=== PATIENT | female | born 1980 | race African-American/Black ===

== ENCOUNTER 2019-05-07 09:09 | Inpatient (IN) | payer MEDICAID ==
[~2019-05-07] VITALS: Ht 165.1 cm; Wt 42.4 kg
[2019-05-07] VITALS (43 sets, daily range): BP systolic 94–171; BP diastolic 47–115
[2019-05-07 09:46] LABS: BASOPHILS % 0.5 % (0.0-2.0); EOSINOPHILS % 0.1 % (0.0-5.0); HEMATOCRIT. 45.8 % (36.0-48.0); HEMOGLOBIN. 13.4 g/dL (12.0-16.0); LYMPHOCYTES % 10.6 % (20.0-50.0); MEAN CORPUSCULAR HEMOGLOBIN 26.3 pg (28.0-32.0); MEAN CORPUSCULAR VOLUME 90.2 fL (81.0-99.0); MEAN PLATELET VOLUME 7.6 fl (7.4-10.4); MONOCYTES % 4.9 % (2.0-8.0); NEUTROPHILS % 83.9 % (40.0-76.0); PLATELET 505 x1000/uL (130-400); RED BLOOD CELL COUNT 5.08 mill/uL (4.2-5.4); RED CELL DISTRIBUTION WIDTH 20.4 % (11.6-14.6)
[2019-05-07 09:50] LABS: CHLORIDE 81 mEq/L (98-107)
[2019-05-07 09:54] LABS: ETHANOL BLOOD < 10 mg/dL
[2019-05-07] MEDS ORDERED: SODIUM CHLORIDE 0.9% 1,000 ML IV ONE (10:03)
[2019-05-07] MEDS ORDERED: INSULIN REGULAR (DRIP) 100 UNITS in SODIUM CHLORIDE 0.9% 99 ML IV SCH (10:15)
[2019-05-07 10:18] LABS: CLARITY URINE CLOUDY (CLEAR); COLOR URINE YELLOW (YELLOW); KETONES URINE 3+ (NEGATIVE); LEUKOCYTE ESTERASE URINE 1+ (NEGATIVE); NITRITE URINE NEGATIVE (NEGATIVE); OCCULT BLOOD URINE 2+ (NEGATIVE); PROTEIN URINE 1+ (NEGATIVE); SPECIFIC GRAVITY URINE 1.022 (1.005-1.030); UROBILINOGEN URINE 0.2 E.U./dL (0.2-1.0)
[2019-05-07 10:22] LABS: BG CARBOXYHEMOGLOBIN 0.9 % (0.5-1.5); BG DEOXYHEMOGLOBIN 1.3 % (0.0-5.0); BG FRACTION INSPIRED OXYGEN 21; BG METHEMOGLOBIN 0.1 % (0.0-1.5); BG OXYGEN SATURATION 98.7 % (92.0-98.5); BG OXYHEMOGLOBIN 97.7 % (94.0-97.0); BG PCO2 < 8.9 mmHg (35.0-45.0); BG PH 6.917 (7.350-7.450); BG PO2 189.2 mmHg (75.0-100.0); BG SAMPLE SITE RIGHT BRACHIAL; BG TOTAL HEMOGLOBIN 13.1 g/dL (12.0-18.0); BG VENT MODE ROOM AIR
[2019-05-07] MEDS ORDERED: SODIUM BICARBONATE 8.4% 1 MEQ/ML 50ML SYR IV ONE (10:30)
[2019-05-07] MEDS: SODIUM CHLORIDE 0.9% 1,000 ML IV SCH ×2 (10:43→18:27)
[2019-05-07] MEDS ORDERED: INSULIN REGULAR (DRIP) 100 UNITS in SODIUM CHLORIDE 0.9% 100 ML IV SCH (10:43)
[2019-05-07 10:44] LABS: BETA HYDROXYBUTYRATE 19.6 mMol/L (0.0-0.3)
[2019-05-07] MEDS ORDERED: ENOXAPARIN 40MG/0.4ML SYR SUBCUT SCH ×2 (10:45→14:00)
[2019-05-07] MEDS ORDERED: ACETAMINOPHEN 325MG TABLET PO PRN (10:45)
[2019-05-07] MEDS ORDERED: CLONIDINE 0.1MG TABLET PO PRN (10:45)
[2019-05-07] MEDS ORDERED: DEXTROSE 50% WATER 50ML SYRINGE IV PRN (10:45)
[2019-05-07] MEDS ORDERED: SUCCINYLCHOLINE CHLORIDE 200MG/10ML IV ONE ×2 (10:45→11:00)
[2019-05-07] MEDS ORDERED: DOCUSATE SODIUM 100MG CAPSULE PO PRN (10:45)
[2019-05-07] MEDS ORDERED: MAGNESIUM/ALUMINUM HYDROXIDE/SIMETHICONE 30ML UDC PO PRN (10:45)
[2019-05-07] MEDS ORDERED: ONDANSETRON HCL 4MG/2ML INJ IV PRN (10:45)
[2019-05-07] MEDS ORDERED: NITROGLYCERIN 0.4MG TABLET SL SL PRN (10:45)
[2019-05-07] MEDS ORDERED: LEVOFLOXACIN 500MG PREMIX 100 ML IV SCH (10:45)
[2019-05-07] MEDS ORDERED: ETOMIDATE 2MG/ML 10ML VIAL IV ONE ×2 (10:45→11:00)
[2019-05-07] MEDS ORDERED: SODIUM CHLORIDE 0.9% 1000ML BAG (SEPSIS BOLUS) IV ONE (10:45)
[2019-05-07] MEDS ORDERED: IPRATROPIUM/ALBUTEROL 0.5-3(2.5)MG/3ML NEB INH PRN (10:45)
[2019-05-07] MEDS ORDERED: GUAIFENESIN 200MG/10ML SUGAR FREE UDC PO PRN (10:45)
[2019-05-07] MEDS ORDERED: CEFTRIAXONE 1 G PREMIX 50 ML IV SCH (10:52)
[2019-05-07 10:55] LABS: *AMPHETAMINES SCREEN URINE NEGATIVE (NEGATIVE); *BARBITURATES SCREEN URINE NEGATIVE (NEGATIVE); *BENZODIAZEPINES SCREEN URINE NEGATIVE (NEGATIVE); *COCAINE SCREEN URINE NEGATIVE (NEGATIVE); CANNABINOID URINE SCREEN NEGATIVE (NEGATIVE); METHADONE URINE SCREEN NEGATIVE (NEGATIVE); OPIATES URINE SCREEN NEGATIVE (NEGATIVE); PHENCYCLIDINE URINE SCREEN NEGATIVE (NEGATIVE)
[2019-05-07] MEDS ORDERED: PROPOFOL 10MG/ML 100ML 100 ML IV ONE (11:00)
[2019-05-07 11:36] LABS: T4 FREE 0.74 ng/dL (0.76-1.46)
[2019-05-07] MEDS: BLOOD SUGAR DIAGNOSTIC STRIP TEST SCH ×13 (11:38→23:44)
[2019-05-07 11:46] LABS: FOLIC ACID (FOLATE) SERUM >20 ng/mL ng/mL (>5.38)
[2019-05-07 11:58] LABS: VITAMIN B12 SERUM >2000 pg/mL pg/mL (211-911)
[2019-05-07] MEDS ORDERED: LEVOFLOXACIN 500MG PREMIX 100 ML IV NR (12:00)
[2019-05-07] MEDS ORDERED: MIDAZOLAM HCL 50 MG in DEXTROSE 5% WATER 40 ML IV PRN (12:30)
[2019-05-07] MEDS ORDERED: KETOROLAC 15MG/ML VIAL IV PRN (13:22)
[2019-05-07] MEDS ORDERED: SODIUM CHLORIDE 0.9% 1000ML BAG (SEPSIS BOLUS) IV NR (13:45)
[2019-05-07 14:13] LABS: BG BASE EXCESS -19.5 mmol/L (-2.0-2.0); BG CARBOXYHEMOGLOBIN 0.3 % (0.5-1.5); BG DEOXYHEMOGLOBIN 1.5 % (0.0-5.0); BG FRACTION INSPIRED OXYGEN 40; BG HCO3 ACT 6.1 mmol/L (22.0-26.0); BG METHEMOGLOBIN 0.3 % (0.0-1.5); BG OXYGEN SATURATION 98.5 % (92.0-98.5); BG OXYHEMOGLOBIN 97.9 % (94.0-97.0); BG PCO2 15.8 mmHg (35.0-45.0); BG PH 7.204 (7.350-7.450); BG PO2 141.7 mmHg (75.0-100.0); BG SAMPLE SITE RIGHT RADIAL; BG TIDAL VOLUME(mL) 400 mL; BG TOTAL HEMOGLOBIN 12.7 g/dL (12.0-18.0); BG VENT MODE VENT - A/C; BG VENT RATE 20 set
[2019-05-07] MEDS ORDERED: SODIUM BICARBONATE 8.4% 1 MEQ/ML 50ML SYR IV NR ×2 (14:15→14:45)
[2019-05-07] MEDS: FENTANYL CITRATE/PF 500 MCG in SODIUM CHLORIDE 0.9% 40 ML IV PRN ×2 (14:27→19:57)
[2019-05-07] MEDS: MIDAZOLAM HCL 50 MG in DEXTROSE 5% WATER 40 ML IV PRN ×2 (14:28→19:57)
[2019-05-07] MEDS ORDERED: FENTANYL CITRATE/PF 500 MCG in SODIUM CHLORIDE 0.9% 40 ML IV PRN (14:30)
[2019-05-07] MEDS ORDERED: SODIUM BICARBONATE 100 MEQ in SODIUM CHLORIDE 0.45% 1,000 ML IV SCH (15:00)
[2019-05-07] MEDS: LORAZEPAM 2MG/ML CPJ IV PRN (15:12)
[2019-05-07] MEDS: PANTOPRAZOLE SODIUM 40 MG/VIAL IV SCH ×2 (15:19→21:02)
[2019-05-07 17:15] LABS: AMYLASE 207 IU/L (25-115)
[2019-05-07] MEDS: INSULIN REGULAR (DRIP) 100 UNITS in SODIUM CHLORIDE 0.9% 99 ML IV SCH (18:40)
[2019-05-07 19:53] LABS: CHLORIDE 111 mEq/L (98-107)
[2019-05-07 19:56] LABS: BG BASE EXCESS -6.5 mmol/L (-2.0-2.0); BG CARBOXYHEMOGLOBIN 0.3 % (0.5-1.5); BG DEOXYHEMOGLOBIN 1.3 % (0.0-5.0); BG HCO3 ACT 18.5 mmol/L (22.0-26.0); BG METHEMOGLOBIN 0.3 % (0.0-1.5); BG OXYGEN SATURATION 98.7 % (92.0-98.5); BG OXYHEMOGLOBIN 98.1 % (94.0-97.0); BG PH 7.341 (7.350-7.450); BG PO2 163.1 mmHg (75.0-100.0); BG SAMPLE SITE LEFT RADIAL; BG TIDAL VOLUME(mL) 400 mL; BG TOTAL HEMOGLOBIN 10.7 g/dL (12.0-18.0); BG VENT MODE VENT - A/C; BG VENT RATE 16 set
[2019-05-07] MEDS: IPRATROPIUM/ALBUTEROL 0.5-3(2.5)MG/3ML NEB HHN SCH (20:19)
[2019-05-07 20:57] LABS: BASOPHILS % 0.3 % (0.0-2.0); EOSINOPHILS % 0.4 % (0.0-5.0); HEMATOCRIT. 29.9 % (36.0-48.0); LYMPHOCYTES % 14.6 % (20.0-50.0); MEAN CORPUSCULAR HEMOGLOBIN 26.1 pg (28.0-32.0); MEAN PLATELET VOLUME 6.5 fl (7.4-10.4); MONOCYTES % 7.7 % (2.0-8.0); PLATELET 296 x1000/uL (130-400); RED BLOOD CELL COUNT 3.84 mill/uL (4.2-5.4); RED CELL DISTRIBUTION WIDTH 20.1 % (11.6-14.6)
[2019-05-07 20:58] LABS: MEAN CORPUSCULAR VOLUME 77.9 fL (81.0-99.0)
[2019-05-07 20:59] LABS: BG FRACTION INSPIRED OXYGEN 40
[2019-05-07 21:05] LABS: D-DIMER 1.2 mg/L FEU (<0.50); PROTHROMBIN TIME 9.8 sec (9.6-11.0)
[2019-05-07] MEDS ORDERED: NOREPINEPHRINE 16 MG in DEXT 5% WATER 234 ML IV PRN (21:45)
[2019-05-07] MEDS ORDERED: POTASSIUM CHLORIDE INJ 40 MEQ in DEXT 5% WATER 250 ML IV NR (22:30)
[2019-05-08] VITALS (96 sets, daily range): BP systolic 106–167; BP diastolic 52–117
[2019-05-08 00:27] LABS: BG BASE EXCESS -2.2 mmol/L (-2.0-2.0); BG CARBOXYHEMOGLOBIN 0.3 % (0.5-1.5); BG DEOXYHEMOGLOBIN 1.4 % (0.0-5.0); BG FRACTION INSPIRED OXYGEN 40; BG HCO3 ACT 23.4 mmol/L (22.0-26.0); BG METHEMOGLOBIN 0.3 % (0.0-1.5); BG OXYGEN SATURATION 98.6 % (92.0-98.5); BG PCO2 43.7 mmHg (35.0-45.0); BG PH 7.347 (7.350-7.450); BG PO2 169.9 mmHg (75.0-100.0); BG SAMPLE SITE A-LINE; BG TIDAL VOLUME(mL) 400 mL; BG TOTAL HEMOGLOBIN 10.5 g/dL (12.0-18.0); BG VENT MODE VENT - A/C; BG VENT RATE 16 set
[2019-05-08] MEDS: BLOOD SUGAR DIAGNOSTIC STRIP TEST SCH ×16 (00:38→23:02)
[2019-05-08 00:46] LABS: BASOPHILS % 0.5 % (0.0-2.0); EOSINOPHILS % 0.8 % (0.0-5.0); HEMATOCRIT. 29.3 % (36.0-48.0); LYMPHOCYTES % 7.8 % (20.0-50.0); MEAN CORPUSCULAR HEMOGLOBIN 26.4 pg (28.0-32.0); MEAN CORPUSCULAR VOLUME 77.3 fL (81.0-99.0); MEAN PLATELET VOLUME 6.3 fl (7.4-10.4); NEUTROPHILS % 80.9 % (40.0-76.0); PLATELET 276 x1000/uL (130-400); RED BLOOD CELL COUNT 3.79 mill/uL (4.2-5.4); RED CELL DISTRIBUTION WIDTH 19.9 % (11.6-14.6)
[2019-05-08 00:51] LABS: CHLORIDE 119 mEq/L (98-107)
[2019-05-08] MEDS: IPRATROPIUM/ALBUTEROL 0.5-3(2.5)MG/3ML NEB HHN SCH ×4 (02:31→20:35)
[2019-05-08] MEDS: DEXT 5%/0.45% NACL 1000ML 1,000 ML IV SCH ×3 (02:39→18:10)
[2019-05-08] MEDS: FENTANYL CITRATE/PF 500 MCG in SODIUM CHLORIDE 0.9% 40 ML IV PRN ×2 (03:19→18:11)
[2019-05-08] MEDS ORDERED: KCL 20MEQ/100ML PREMIX 100 ML IV NR (04:00)
[2019-05-08 05:44] LABS: BASOPHILS % 0.3 % (0.0-2.0); EOSINOPHILS % 0.9 % (0.0-5.0); HEMATOCRIT. 30.6 % (36.0-48.0); HEMOGLOBIN. 10.2 g/dL (12.0-16.0); MEAN CORPUSCULAR HEMOGLOBIN 26.4 pg (28.0-32.0); MEAN CORPUSCULAR VOLUME 78.9 fL (81.0-99.0); MEAN PLATELET VOLUME 6.8 fl (7.4-10.4); MONOCYTES % 13.5 % (2.0-8.0); NEUTROPHILS % 76.3 % (40.0-76.0); PLATELET 267 x1000/uL (130-400); RED BLOOD CELL COUNT 3.88 mill/uL (4.2-5.4); RED CELL DISTRIBUTION WIDTH 20.5 % (11.6-14.6)
[2019-05-08 05:48] LABS: CHLORIDE 120 mEq/L (98-107)
[2019-05-08] MEDS: MIDAZOLAM HCL 50 MG in DEXTROSE 5% WATER 40 ML IV PRN (07:38)
[2019-05-08 07:39] LABS: BG BASE EXCESS -4.6 mmol/L (-2.0-2.0); BG CARBOXYHEMOGLOBIN 0.3 % (0.5-1.5); BG DEOXYHEMOGLOBIN 1.2 % (0.0-5.0); BG FRACTION INSPIRED OXYGEN 40; BG HCO3 ACT 21.4 mmol/L (22.0-26.0); BG METHEMOGLOBIN 0.3 % (0.0-1.5); BG OXYGEN SATURATION 98.8 % (92.0-98.5); BG OXYHEMOGLOBIN 98.2 % (94.0-97.0); BG PCO2 42.8 mmHg (35.0-45.0); BG PH 7.316 (7.350-7.450); BG SAMPLE SITE A-LINE; BG TIDAL VOLUME(mL) 400 mL; BG TOTAL HEMOGLOBIN 10.5 g/dL (12.0-18.0); BG VENT MODE VENT - A/C; BG VENT RATE 16 set
[2019-05-08] MEDS ORDERED: PANTOPRAZOLE SODIUM 40 MG/VIAL IV SCH (09:00)
[2019-05-08] MEDS: PANTOPRAZOLE SODIUM 40 MG/VIAL IV SCH ×2 (09:05→21:08)
[2019-05-08] MEDS: CEFTRIAXONE 1 G PREMIX 50 ML IV SCH (10:35)
[2019-05-08] MEDS ORDERED: LEVOFLOXACIN 250MG PREMIX 50 ML IV SCH (11:30)
[2019-05-08] MEDS: INSULIN REGULAR (DRIP) 100 UNITS in SODIUM CHLORIDE 0.9% 99 ML IV SCH (12:57)
[2019-05-08 13:25] LABS: BASOPHILS % 0.5 % (0.0-2.0); EOSINOPHILS % 1.3 % (0.0-5.0); HEMATOCRIT. 31.3 % (36.0-48.0); HEMOGLOBIN. 10.4 g/dL (12.0-16.0); LYMPHOCYTES % 9.2 % (20.0-50.0); MEAN CORPUSCULAR HEMOGLOBIN 26.2 pg (28.0-32.0); MEAN CORPUSCULAR VOLUME 78.9 fL (81.0-99.0); MEAN PLATELET VOLUME 6.6 fl (7.4-10.4); MONOCYTES % 8.8 % (2.0-8.0); NEUTROPHILS % 80.2 % (40.0-76.0); PLATELET 237 x1000/uL (130-400); RED BLOOD CELL COUNT 3.96 mill/uL (4.2-5.4); RED CELL DISTRIBUTION WIDTH 20.5 % (11.6-14.6)
[2019-05-08 13:31] LABS: CHLORIDE 120 mEq/L (98-107)
[2019-05-08 18:35] LABS: CHLORIDE 120 mEq/L (98-107)
[2019-05-09] VITALS (70 sets, daily range): BP systolic 114–170; BP diastolic 75–117
[2019-05-09] MEDS: BLOOD SUGAR DIAGNOSTIC STRIP TEST SCH ×12 (00:04→17:57)
[2019-05-09] MEDS: IPRATROPIUM/ALBUTEROL 0.5-3(2.5)MG/3ML NEB HHN SCH ×4 (02:02→20:41)
[2019-05-09] MEDS: FENTANYL CITRATE/PF 500 MCG in SODIUM CHLORIDE 0.9% 40 ML IV PRN ×2 (02:23→09:38)
[2019-05-09] MEDS: DEXT 5%/0.45% NACL 1000ML 1,000 ML IV SCH ×3 (02:44→18:30)
[2019-05-09 06:35] LABS: CHLORIDE 117 mEq/L (98-107)
[2019-05-09 06:36] LABS: BASOPHILS % 0.5 % (0.0-2.0); HEMATOCRIT. 27.7 % (36.0-48.0); HEMOGLOBIN. 9.2 g/dL (12.0-16.0); LYMPHOCYTES % 18.7 % (20.0-50.0); MEAN CORPUSCULAR HEMOGLOBIN 26.3 pg (28.0-32.0); MEAN CORPUSCULAR VOLUME 78.9 fL (81.0-99.0); MEAN PLATELET VOLUME 6.5 fl (7.4-10.4); MONOCYTES % 6.8 % (2.0-8.0); PLATELET 183 x1000/uL (130-400); RED BLOOD CELL COUNT 3.51 mill/uL (4.2-5.4); RED CELL DISTRIBUTION WIDTH 21.2 % (11.6-14.6)
[2019-05-09] MEDS: DEXTROSE 50% WATER 50ML SYRINGE IV PRN (07:17)
[2019-05-09] MEDS: PANTOPRAZOLE SODIUM 40 MG/VIAL IV SCH ×2 (08:50→21:33)
[2019-05-09] MEDS ORDERED: CEFTRIAXONE 1 G PREMIX 50 ML IV SCH (09:00)
[2019-05-09 09:12] LABS: BG BASE EXCESS -3.2 mmol/L (-2.0-2.0); BG CARBOXYHEMOGLOBIN 0.3 % (0.5-1.5); BG DEOXYHEMOGLOBIN 0.9 % (0.0-5.0); BG FRACTION INSPIRED OXYGEN 40; BG HCO3 ACT 22.4 mmol/L (22.0-26.0); BG METHEMOGLOBIN 0.3 % (0.0-1.5); BG OXYGEN SATURATION 99.1 % (92.0-98.5); BG OXYHEMOGLOBIN 98.5 % (94.0-97.0); BG PCO2 42.3 mmHg (35.0-45.0); BG PH 7.341 (7.350-7.450); BG PO2 202.8 mmHg (75.0-100.0); BG SAMPLE SITE LEFT BRACHIAL; BG TIDAL VOLUME(mL) 400 mL; BG TOTAL HEMOGLOBIN 10.8 g/dL (12.0-18.0); BG VENT MODE VENT - A/C; BG VENT RATE 16 set
[2019-05-09] MEDS ORDERED: MORPHINE SULFATE 2 MG/ML CPJ (NOT FOR IM USE) IV PRN (09:30)
[2019-05-09] MEDS ORDERED: DEXTROSE 50% WATER 50ML SYRINGE IV PRN (09:30)
[2019-05-09] MEDS ORDERED: POTASSIUM CHLORIDE 20MEQ/PACKET NG SCH (10:00)
[2019-05-09] MEDS: LORAZEPAM 2MG/ML CPJ IV PRN (10:18)
[2019-05-09] MEDS: CEFTRIAXONE 1 G PREMIX 50 ML IV SCH (11:27)
[2019-05-09] MEDS: INSULIN GLARGINE UD 100 UNITS/ML SYR SUBCUT SCH (11:32)
[2019-05-09] MEDS: THIAMINE HCL 100MG TABLET PO SCH ×2 (12:00→21:33)
[2019-05-09] MEDS ORDERED: BLOOD SUGAR DIAGNOSTIC STRIP TEST SCH (12:00)
[2019-05-09 12:01] LABS: BG BASE EXCESS -4.9 mmol/L (-2.0-2.0); BG CARBOXYHEMOGLOBIN 0.3 % (0.5-1.5); BG DEOXYHEMOGLOBIN 1.2 % (0.0-5.0); BG FRACTION INSPIRED OXYGEN 40; BG METHEMOGLOBIN 0.1 % (0.0-1.5); BG OXYGEN SATURATION 98.8 % (92.0-98.5); BG OXYHEMOGLOBIN 98.4 % (94.0-97.0); BG PCO2 36.2 mmHg (35.0-45.0); BG PO2 179.5 mmHg (75.0-100.0); BG PRESSURE SUPPORT 8; BG SAMPLE SITE RIGHT RADIAL; BG TOTAL HEMOGLOBIN 10.1 g/dL (12.0-18.0); BG VENT MODE VENT - CPAP
[2019-05-09] MEDS: INSULIN LISPRO 100 UNITS/ML SUBCUT SCH ×2 (12:56→17:57)
[2019-05-10] VITALS (31 sets, daily range): BP systolic 112–156; BP diastolic 64–111
[2019-05-10] MEDS: BLOOD SUGAR DIAGNOSTIC STRIP TEST SCH ×5 (00:21→21:19)
[2019-05-10] MEDS: IPRATROPIUM/ALBUTEROL 0.5-3(2.5)MG/3ML NEB HHN SCH ×4 (02:09→21:27)
[2019-05-10] MEDS: DEXT 5%/0.45% NACL 1000ML 1,000 ML IV SCH (02:49)
[2019-05-10] MEDS: DEXTROSE 50% WATER 50ML SYRINGE IV PRN (04:25)
[2019-05-10] MEDS: INSULIN LISPRO 100 UNITS/ML SUBCUT SCH ×5 (05:38→21:00)
[2019-05-10] MEDS: THIAMINE HCL 100MG TABLET PO SCH ×2 (09:14→21:31)
[2019-05-10] MEDS: PANTOPRAZOLE SODIUM 40 MG/VIAL IV SCH ×2 (09:14→21:32)
[2019-05-10] MEDS: INSULIN GLARGINE UD 100 UNITS/ML SYR SUBCUT SCH (11:04)
[2019-05-10] MEDS: CEFTRIAXONE 1 G PREMIX 50 ML IV SCH (11:05)
[2019-05-11] VITALS: BP 136/89
[2019-05-11] MEDS: IPRATROPIUM/ALBUTEROL 0.5-3(2.5)MG/3ML NEB HHN SCH ×2 (02:31→08:10)
[2019-05-11 04:00] VITALS: BP 135/96
[2019-05-11] MEDS: DEXTROSE 50% WATER 50ML SYRINGE IV PRN (06:53)
[2019-05-11] MEDS: INSULIN LISPRO 100 UNITS/ML SUBCUT SCH (07:20)
[2019-05-11] MEDS: BLOOD SUGAR DIAGNOSTIC STRIP TEST SCH (07:40)
[2019-05-11 08:00] VITALS: BP 138/90
[2019-05-11] MEDS: THIAMINE HCL 100MG TABLET PO SCH (09:13)
[2019-05-11] MEDS: PANTOPRAZOLE SODIUM 40 MG/VIAL IV SCH (09:13)
[2019-05-11] MEDS: INSULIN GLARGINE UD 100 UNITS/ML SYR SUBCUT SCH (10:34)
[2019-05-11 10:58] VITALS: BP 100/38
== END 2019-05-11 12:15 | disposition home or self-care (01) | DRG 720 ==
LOC: ER 09:09 → CVICU 10:31 → ENRESERV 12:18 → 6EST 05-10 15:23
PROVIDERS: ADMIT Internal Medicine; ATTEND Internal Medicine
PROC: 5A1945Z Respiratory Ventilation, 24-96 Consecutive Hours (ICD-10-PCS; principal; 2019-05-07)
PROC: 04HY32Z Insertion of Monitoring Device into Lower Artery, Percutaneous Approach (ICD-10-PCS; 2019-05-07)
PROC: 4A133B1 Monitoring of Arterial Pressure, Peripheral, Percutaneous Approach (ICD-10-PCS; 2019-05-07)
PROC: 4A133J1 Monitoring of Arterial Pulse, Peripheral, Percutaneous Approach (ICD-10-PCS; 2019-05-07)
PROC: 0BH17EZ Insertion of Endotracheal Airway into Trachea, Via Natural or Artificial Opening (ICD-10-PCS; 2019-05-07)
PROC: 02HV33Z Insertion of Infusion Device into Superior Vena Cava, Percutaneous Approach (ICD-10-PCS; 2019-05-08)
PROC: B548ZZA Ultrasonography of Superior Vena Cava, Guidance (ICD-10-PCS; 2019-05-08)
DX: A41.9 Sepsis, unspecified organism (principal); J96.00 Acute respiratory failure, unspecified whether with hypoxia or hypercapnia; G92 Toxic encephalopathy; E43 Unspecified severe protein-calorie malnutrition; N17.9 Acute kidney failure, unspecified; E11.10 Type 2 diabetes mellitus with ketoacidosis without coma; N39.0 Urinary tract infection, site not specified; E83.52 Hypercalcemia; E78.1 Pure hyperglyceridemia; E87.0 Hyperosmolality and hypernatremia; D64.9 Anemia, unspecified; I10 Essential (primary) hypertension; B95.1 Streptococcus, group B, as the cause of diseases classified elsewhere; E78.5 Hyperlipidemia, unspecified; E87.1 Hypo-osmolality and hyponatremia; H91.3 Deaf nonspeaking, not elsewhere classified
CPT/HCPCS: 31500; 36415; 36600; 71045; 76937; 80048; 80061; 80305; 80320; 82010; 82150; 82375; 82607; 82746; 82805; 82962; 83036; 83540; 83550; 83605; 84439; 84443; 84478; 84484; 85379; 85384; 87070; 87077; 92610; 93005; 94002; 94003; 94640; 96374; 97161; 97166; 99285; C1725; C9113; J0330; J0696; J1815; J1956; J2060; J2250; J2704; J3010; J3480; J3490; J7030; J7050; J7060; J7620; G0480